=== PATIENT | male | born 1960 | race Hispanic/Latino ===

== ENCOUNTER 2022-01-04 09:10 | Day surgery (SDC) | payer BC ==
[~2022-01-04 09:10] MED LIST: SODIUM CHLORIDE 0.9% 1000 ML 1,000 ML IV SCH
--- NOTE | 2022-01-04 10:05 | Anesthesia Day of Surgery ---
Anesthesia Day of Surgery - Day of Surgery Patient Examined: Yes Patient H&P Reviewed: Yes Patient is NPO: Yes
--- NOTE | 2022-01-04 10:05 | Anesthesia Consultation ---
Anesthesia Consult and Med Hx Date of service: 01/04/22 - Airway Anesthetic Teeth Evaluation: Good ROM Head & Neck: Adequate Mental/Hyoid Distance: Adequate Mallampati Class: Class II Intubation Access Assessment: Probably Good - Pulmonary Exam CTA: Yes - Cardiac Exam Cardiac Exam: RRR - Pre-Operative Health Status ASA Pre-Surgery Classification: ASA3 Proposed Anesthetic Plan: MAC - Pulmonary Hx Smoking: No Hx Respiratory Symptoms: Yes (h/o pulmonary fibrosis; not on oxygen.) Hx Sleep Apnea: Yes (awaiting CPAP) - Cardiovascular System Hx Hypertension: No Hx Cardia Arrhythmia: No - Central Nervous System Hx Neuromuscular Disorder: No - Gastrointestinal Hx Gastroesophageal Reflux Disease: No - Endocrine Hx Renal Disease: No Hx Liver Disease: No Hx Thyroid Disease: No - Other Systems Hx Alcohol Use: Yes (occasional) Hx Obesity: No - Additional Comments Anesthesia Medical History Comments: No GAC. No FHAC.
[2022-01-04] MEDS ORDERED: propofoL 200 MG/20 ML VIAL IV ONE (10:11)
--- NOTE | 2022-01-04 11:04 | Short Stay Summary ---
Short Stay Documentation Date of service: 01/04/22 Narrative H&P: The patient presents for surveillance colonoscopy due to long standing ulcerative colitis. Last study was 3 years ago. - History Past Medical History: other (Pulmonary fibrosis, ulcerative colitis.) Past Surgical History: Other (arm fracture) Social history: no significant social history, , lives with family - Allergies and Medications Current Medications: Allergies bee venom protein (honey bee) Allergy (Verified 12/31/21 16:06) Unknown ibuprofen Allergy (Verified 12/31/21 16:06) Unknown Home Medications Medication Instructions Recorded Confirmed Last Taken Type Atenolol 01/04/22 01/04/22 History Active Medications Sodium Chloride (Nacl 0.9% 1000 Ml) 1,000 mls @ 50 mls/hr IV DIRECT ALEXYS - Physical exam General appearance: no acute distress, well-nourished Integumentary: no rash, no growths, no abnormal pigmentation HEENT: Atraumatic, PERRLA, EOMI, Mucous membr. moist/pink Lungs: Clear to auscultation, Normal air movement Breasts: deferred Heart: Regular rate, Normal S1, Normal S2, No murmurs Gastrointestinal: normoactive bowel sounds, no tenderness, no distended, no masses, no organomegaly, no obese Male Genitourinary: deferred Rectal Exam: normal exam-external/orifice, normal rectal tone, no tenderness, no hemorrhoids, no mass Extremities: no ischemia, pulses intact, pulses symmetrical, No edema, normal temperature, normal color, Full ROM Neurological: Normal gait, Normal speech, Strength at 5/5 X4 ext, Normal tone, Sensation intact, Cranial nerves 3-12 NL - Brief post op/procedure progress note Date of procedure: 01/04/22 Procedure: see dictation Pathology: list (random colon biopsies from: 1. ascending colon, 2. transverse, 3.descending colon, 4. sigmoid colon and 5. rectum) Specimen disposition: to lab Condition: stable - Disposition Condition at discharge: Good Disposition: 01 HOME / SELF CARE / HOMELESS - Discharge Diagnoses (1) Ulcerative colitis Status: Acute Short Stay Discharge Plan Activity: other (no driving for 24 hours) Weight Bearing Status: Full Weight Bearing Diet: regular Follow up with: CARTER GARCIA MD [Primary Care Provider] - 7 Days
--- NOTE | 2022-01-04 11:09 | Operative Report ---
Operative Report Operative Report: Date of procedure: 01/04/2022 Preprocedure diagnosis: History of left-sided ulcerative colitis. Last study 3 years ago. Post procedure diagnosis: Moderately active disease of the sigmoid colon, relative rectal sparing. Normal-appearing right colon. Normal-appearing terminal ileum. Procedure: Colonoscopy to the cecum and ileum. Random biopsies of the colon taken in 5 separate specimen jars as below. Endoscopist: Dr. Lezama Anesthesia: Monitored anesthesia care per anesthesia department Estimated blood loss: 0 Medications: Monitored anesthesia care. See separate report by anesthesia for details. After careful discussion of the nature and purpose of the procedure as well as details of the technique risks benefits and alternatives the patient gave consent. Please see recent history and physical from the office. The patient was placed in the left lateral decubitus position and medicated per anesthesia. A rectal exam was performed sphincter tone was normal there were no masses palpable. The Viigon 570 scope was passed transanally and advanced under continuous direct vision without difficulty to the cecum. The ileocecal valve was intubated and the distal terminal ileum appeared normal. The colon was well prepared. The cecum was normal. The ascending colon appeared normal. The transverse colon and descending colon were normal in appearance. There is moderate inflammation with a granular appearance throughout the sigmoid colon. The rectum is relatively normal with minimal inflammation being present on forward and retroflexed views. Random biopsies were taken in the colon and submitted in separate jars which included the ascending colon, transverse colon, descending colon, sigmoid colon and rectum. The procedure was well-tolerated overall and the patient was observed in recovery. Conclusions: Moderate ulcerative colitis activity of the sigmoid colon with relative rectal sparing. Normal-appearing proximal colon and terminal ileum. Plan: Await biopsies for evidence of dysplasia. Consideration of further modification of his medical regimen pending results of biopsies. Signed electronically: Shawn Lezama M.D.
[2022-01-04 13:12] VITALS: BP 127/71
--- NOTE | 2022-01-04 16:06 | Post Anesthesia Evaluation ---
- Post Anesthesia Evaluation Patient Participated: Yes Airway Patent: Yes Stable Respiratory Function: Yes Nausea/Vomiting: No Temp > 96.8F: Yes Pain Manageable: Yes Adequeate Hydration: Yes Anesthesia Complications: No Block Receding Appropriately: Not Applicable Patient on Ventilator: No
== END 2022-01-04 11:35 | disposition home or self-care (01) ==
LOC: GIO 09:10
PROVIDERS: ATTEND Internal Medicine Gastroenterology
DX: K57.92 Diverticulitis of intestine, part unspecified, without perforation or abscess without bleeding (principal); K52.9 Noninfective gastroenteritis and colitis, unspecified; K51.90 Ulcerative colitis, unspecified, without complications; G47.30 Sleep apnea, unspecified; Z72.89 Other problems related to lifestyle; Z88.8 Allergy status to other drugs, medicaments and biological substances; Z79.899 Other long term (current) drug therapy
CPT/HCPCS: 45380; 88305; J2704; J7030